=== PATIENT | female | born 1930 | race Caucasian/White ===

== ENCOUNTER → 2017-06-08 15:07 | Outpatient (CLI) | payer MEDICARE, OTHER ==
[2010-05-25 04:16] VITALS: BMI 32.9
[~2017-06-08 15:07] MED LIST: LEVOTHYROXINE50 MCG PO; LISINOPRIL-HCTZ1 T13 PO
[2017-06-09 01:19] VITALS: BMI 33.0
== END | disposition home or self-care (01) ==
LOC: D.US 15:07
DX: M79.604 Pain in right leg (principal); R60.0 Localized edema

== ENCOUNTER 2017-06-08 16:20 | Inpatient (IN) | payer MEDICARE, OTHER ==
[~2017-06-08] VITALS: Ht 157.5 cm; Wt 79.6 kg
[2017-06-08 18:51] LABS: BASOPHILS 0.3 % (0-2); EOSINOPHILS 1.6 % (0-7); HEMATOCRIT 44.6 % (36.0-48.0); HEMOGLOBIN 14.9 g/dL (12-16); IMMATURE GRANULOCYTES 0.4 % (0-5); LYMPHOCYTES 20.1 % (15-50); MCH 33.2 pg (26.0-34.0); MCHC 33.4 g/dL (31.0-37.0); MCV 99.3 fL (80.0-100.0); MEAN PLATELET VOLUME 11.5 fL (7.4-10.4); MONOCYTES 11.6 % (2-11); RBC 4.49 10x6/uL (4.00-5.40); RDW 13.1 % (11.5-14.5); WBC 7.5 10x3/uL (4.8-10.8)
[2017-06-08 19:01] LABS: PLATELET COUNT 149 10x3/uL (130-400)
[2017-06-08 19:08] LABS: APPEARANCE HAZY (CLEAR); BILIRUBIN NEGATIVE (NEGATIVE); COLOR YELLOW (YELLOW); GLUCOSE NEGATIVE (NEGATIVE); KETONE NEGATIVE (NEGATIVE); LEUKOCYTE ESTERASE 2+ (NEGATIVE); NITRITE POSITIVE (NEGATIVE); PROTEIN TRACE mg/dL (NEGATIVE); SPECIFIC GRAVITY 1.015 (1.005-1.020); UROBILINOGEN NORMAL (NORMAL)
[2017-06-08 19:09] LABS: BACTERIA MANY /hpf (NONE SEEN); RED CELLS - URINE 0-5 /hpf (0-5); WHITE CELLS - URINE >50 /hpf (0-5)
[2017-06-08 19:11] LABS: APTT 26.3 SECONDS (22.8-39.4)
[2017-06-08 19:14] LABS: INR 1.01 (0.85-1.17); PROTIME 13.1 SECONDS (11.6-15.0)
[2017-06-08 19:23] LABS: ALBUMIN 3.5 g/dL (3.4-5.0); ALKALINE PHOSPHATASE 62 U/L (46-116); ALT (SGPT) 19 U/L (10-68); CALC OSMOLALITY 279 mosm/kg (275-300); CALCIUM 10.2 mg/dL (8.5-10.1); CARBON DIOXIDE 24.6 mmol/L (21.0-32.0); CHLORIDE - SERUM 101 mmol/L (98-107); GLUCOSE 100 mg/dL (74-106); PROTEIN - SERUM 7.4 g/dL (6.4-8.2); SODIUM 136 mmol/L (136-145); UREA NITROGEN 34 mg/dL (7-18); eGFR NON AFRICAN AMERICAN 56 mL/min (90-120)
[2017-06-08 19:36] LABS: CREATINE KINASE 38 UL (21-215); MAGNESIUM - SERUM 1.9 mg/dL (1.8-2.4); PRO BNP 372 pg/mL (0-450); TROPONIN-I < 0.017 ng/mL (0.000-0.060)
[2017-06-09 01:19] VITALS: Ht 157.5 cm; Wt 79.6 kg
[2017-06-09 01:51] VITALS: BP 148/61
[2017-06-09] MEDS ORDERED: LISINOPRIL-HCTZ1 T13 PO (05:02)
[2017-06-09] MEDS ORDERED: LEVOTHYROXINE50 MCG PO (05:03)
[2017-06-09 07:39] LABS: ALBUMIN 2.8 g/dL (3.4-5.0); ANION GAP 12.6 mmol/L (8-16); BILIRUBIN - TOTAL 0.47 mg/dL (0.2-1.3); CALCIUM 9.3 mg/dL (8.5-10.1); CARBON DIOXIDE 23.2 mmol/L (21.0-32.0); CREATININE - SERUM 0.8 mg/dL (0.6-1.3); POTASSIUM - SERUM 3.8 mmol/L (3.5-5.1); PROTEIN - SERUM 6.6 g/dL (6.4-8.2)
--- NOTE | 2017-06-09 07:43 | NUR ---
AM ROUNDING- RECEIVED REPORT FROM INVESTMENT SALES ASSISTANT NURSE ASAF. PT IS CURRENTLY SITTING UP IN BED WITH EYES OPEN RESTING. ON ROOM AIR. NO MONITOR. IV SEEN TO RIGHT HAND WITH HEPARIN RUNNING AT 10CC/HR (PER DONNA RON). PT IS AWARE THAT SHE IS ON BEDREST WITH BR PRIVILEGES. NO NEED AT CURRENT TIME. WILL CONTINUE TO MONITOR AND CONTINUE WITH PLAN OF CARE.
[2017-06-09 08:34] VITALS: BP 156/82
--- NOTE | 2017-06-09 08:51 | NUR ---
PAGED DR. RICHARDSON TO LET HIM KNOW THAT PTS PTT IS >200. WILL AWAIT CALLBACK AND CONTINUE TO MONITOR.
--- NOTE | 2017-06-09 08:52 | NUR ---
RECEIVED CALLBACK FROM DR. RICHARDSON WITH NO NEW ORDERS RECEIVED. DR. RICHARDSON STATES TO FOLLOW HEPARIN PROTOCOL.
--- NOTE | 2017-06-09 10:30 | NUR ---
RESTARTED HEPARIN DRIP PER PROTOCOL. HEPARIN IS NOW RUNNING AT 7CC/HR PER PROTOCOL.
[2017-06-09 12:24] VITALS: BP 158/82
[2017-06-09 16:33] VITALS: BP 145/78
--- NOTE | 2017-06-09 17:25 | NUR ---
PT IS CURRENTLY SITTING UP IN BED EATING DINNER. DAUGHTER IS AT BEDSIDE. PT DENIES ANY NEED AT CURRENT TIME. WILL CONTINUE TO MONITOR.
--- NOTE | 2017-06-09 17:28 | NUR ---
PTS PTT CAME BACK AT 72.2. PER HEPARIN PROTOCOL NO CHANGE NEEDED.
[2017-06-09 19:00] VITALS: BP 180/99
--- NOTE | 2017-06-09 22:10 | NUR ---
PT'S BP IS 180/99, CALL DOCTOR, AND LISINOPRIL 40 MG PO MED ORDER, AND GIVEN TO PT.
[2017-06-10] VITALS: BP 153/93
[2017-06-10 04:00] VITALS: BP 152/91
--- NOTE | 2017-06-10 07:51 | NUR ---
AM ROUNDING- RECEIVED REPORT FROM JET INSPECTOR NURSE ROBEL. PT IS CURRENTLY SITTING UP IN BED WITH EYES OPEN RESTING. STATES SHE HAS DISCOMFORT WHEN SHE MOVES IN BED. ON 02 AT 2L VIA NC. NO MONITOR. IV SEEN TO RIGHT HAND WITH HEPARIN DRIP RUNNING AT 8CC PER HEPARIN PROTOCOL. NO NEED AT CURRENT TIME. WILL CONTINUE TO MONITOR AND CONTINUE WITH PLAN OF CARE.
[2017-06-10 08:00] VITALS: BP 151/82
--- NOTE | 2017-06-10 08:53 | NUR ---
D/C PTS HEPARIN DRIP ORDERED. SALINE LOCKED IV TO LEFT HAND.
[2017-06-10 12:00] VITALS: BP 148/66
--- NOTE | 2017-06-10 14:01 | NUR ---
Patient Name: MEGHAN GUPTA Encounter No: [id number] : 1930 Primary Insurance: MEDICARE A & B Anticipated DC Date: 06-11-2017 Planned Disposition: Home with Home Health External Planned Provider: [facility] Discharge Planning Comments: * Is the patient Alert and Oriented? Yes 0 * How many steps to enter\exit or inside your home? 2 0 * PCP DR. RICHARDSON 0 * Pharmacy [facility] OR MAIL ORDER 0 * Preadmission Environment Home with Family 0 * ADLs Partial Dependent 0 * Partial ADLs (Assistance needed) Bathing 0 * Equipment Cane Shower Chair Walker Wheelchair 0 * Other Equipment NO MEDICAL EQUIPMENT PROVIDER PREFERENCE 0 * List name and contact numbers for known caregivers / representatives who currently or will assist patient after discharge: LUPILLO GUPTA, SON AND DTR IN LAW, 0 * Community resources currently utilized None 0 * Please name any agencies selected above. NONE 0 * Additional services required to return to the preadmission environment? Yes 0 * Can the patient safely return to the preadmission environment? Yes 0 * Has this patient been hospitalized within the prior 30 days at any hospital? No 0 CM RECEIVED HOME HEALTH ORDER, MET WITH PT IN ROOM TO DISCUSS DISCHARGE PLANNING AND NEEDS. PT REPORTS LIVING AT HOME WITH HER SON AND DA[place]; PT REPORTS BEING PARTIALLY DEPENDENT ON FAMILY FOR BATHING RIGHT NOW. PT HAS CANE, WALKER, SHOWER CHAIR AND WHEELCHAIR WITH NO MEDICAL EQUIPMENT PROVIDER PREFERENCE. PT HAS NO OUTSIDE SERVICES ASSISTING IN THE HOME. CM DISCUSSED AVAILABILITY OF HOME HEALTH, REHAB SERVICES AND MEDICAL EQUIPMENT. PT WOULD LIKE HOME HEALTH, CHOSE [facility], CHOICE LETTER SIGNED; PT REPORTS HER SON OR DAUGHTER IN LAW WILL PICK HER UP FOR DISCHARGE HOME TOMORROW. IMPORTANT MESSAGE FROM MEDICARE PROVIDED AND EXPLAINED. CM CALLED [facility], , SPOKE TO FIDELINA AND PROVIDED REFERRAL INFORMATION. CM FAXED REFERRAL TO [facility] AT [phone]. PT NOTIFIED. FOR DISCHARGE HOME, NOTIFY [facility] AT [phone], FAX DISCHARGE INFORMATION TO [facility] AT [phone]. CM TO FOLLOW AND ASSIST NEEDED. PT'S DISCHARGE ADDRESS IS [address] [place] [address]. Supervisor [employer]: John Modi
[2017-06-10 16:00] VITALS: BP 143/71
--- NOTE | 2017-06-10 16:35 | NUR ---
PT IS CURRENTLY SITTING UP IN BED WITH EYES OPEN RESTING. PT STATES "DOES THIS IV NEED TO COME OUT". I ASSESSED IV SITE AND DID NOT SEE ANY SIGN OF REDNESS OR SWELLING. I INFORMED PT THAT WE KEEP IV CATHETERS IN UNTIL D/C JUST INCASE OF AN EMERGENCY. PT STATES SHE UNDERSTANDS. NO NEED AT CURRENT TIME. WILL CONTINUE TO MONITOR.
--- NOTE | 2017-06-10 19:15 | NUR ---
SHIFT ASSESSMENT COMPLETE. PT SITTING UP IN BED TALKING. SPEECH CLEAR. ALERT AND ORIENTED. PT DENIES ANY COMPLAINT OF PAIN AT THIS TIME. S1S2 AUDIBLE. CAROTID, RADIAL, AND PEDAL PUSLES PALP. BOWEL SOUNDS ACTIVE IN ALL QUADS, ABD NON TENDER TO TOUCH. PT STATES THAT SHE IS ABLE TO GET UP ON HER OWN, BUT I INFORMED HER TO PUSH THE CALL LIGHT SO I COULD ASSIST HER TO THE BATHROOM IF NEEDED. BILAT LEGS ARE RED WITH SOME SWELLING NOTED. SLIPPER SOCKS ON, BED IN LOWEST POSITION, CALL LIGHT IN REACH. PT'S TRANSIT MANAGER IN ROOM VISITING. DENIES ANY FURTHER REQUEST.
[2017-06-10 21:05] VITALS: BP 160/76
[2017-06-11 01:19] VITALS: BP 175/90
--- NOTE | 2017-06-11 02:20 | NUR ---
PT CALL LIGHT ON. ASSISTED PT TO RESTROOM. GAIT STEADY WHEN USING CANE FOR ASSISTANCE. CLEAR YELLOW URINE NOTED. ASKED PT WHAT HER BP USUALLY RUNS AND SHE SAID, "VERY HIGH." I WAS CONCERNED, BECAUSE HER LAST BP WAS HIGHER THAN THE OTHERS COLLECTED. PT STATES THAT SHE FEELS FINE AND THAT SHE HAS BEEN OFF OF HER HOME MEDICATION FOR THREE DAYS NOW AND THAT IT IS NORMAL FOR HER. WILL CONTINUE TO MONITIOR BP. CHANGED PINK PAD AND GOWN. NO INCONTINENCE, BUT THERE WERE STAINS ON GOWN AND PAD. PT BACK IN BED WITH SHEET PULLED UP, NO BLANKET. SHE STATES THAT SHE IS HOT. FOLDED BLANKET AND PUT IT AT THE EDGE OF THE BED. CALL LIGHT IN REACH. BED IN LOWEST POSITION. WILL CONTINUE TO MONITOR.
--- NOTE | 2017-06-11 05:00 | NUR ---
ASSISTED PT TO BATHROOM. CLEAR YELLOW URINE COLLECTED. I&O'S RECORDED. PT CLEANING CANE WITH PURELLE. ALERT AND ORIENTED X3. PT STATES THAT SHE IS GOING BACK TO BED AT THIS TIME. STRAIGHTENED UP LINENS. PT BACK IN BED. CALL LIGHT IN REACH. NO FURTHER NEEDS REQUESTED.
[2017-06-11 06:18] VITALS: BP 175/76
--- NOTE | 2017-06-11 07:12 | NUR ---
PT SITTING UP IN BED STATES SHE WILL DC HOME TODAY. DENIES ANY NEEDS OTHER THAN LIGHT TURNED ON, DONE. WILL CONT TO MONITOR
[2017-06-11 08:09] VITALS: BP 186/93
[2017-06-11] MEDS ORDERED: ELIQUIS5 MG PO ×2 (08:59→09:02)
[2017-06-11] MEDS ORDERED: LIPITOR10 MG PO (09:00)
[2017-06-11] MEDS ORDERED: HCTZ25 MG PO (09:01)
[2017-06-11] MEDS ORDERED: ZESTRIL40 MG PO (09:01)
[2017-06-11] MEDS ORDERED: NORVASC5 MG PO (09:12)
--- NOTE | 2017-06-11 11:03 | NUR ---
Patient Name: MEGHAN GUPTA Encounter No: [id number] : 1930 Primary Insurance: MEDICARE A & B Anticipated DC Date: 06-11-2017 Planned Disposition: Home with Home Health External Planned Provider: [facility] DCP follow-up note: CM RECEIVED DISCHAGE ORDER, MET WITH PT WHO IS IN AGREEMENT FOR DISCHARGE HOME TODAY, FAMILY TO SOLAR CONSULTANT. CM CALLED FIDELINA AT [facility] AT [phone], NOTIFIED OF DISCHARGE, FAXED DISCHARGE INFORMATION TO [facility] AT [phone]. NO FURTHER NEEDS IDENTIFIED. Regional Sales Representative: John Modi
[2017-06-11 12:52] VITALS: BP 151/79
--- NOTE | 2017-06-11 14:24 | NUR ---
WENT OVER DC PAPERWORK WITH PT PT VERBALIZES UNDERSTANDING. DC PIV WITH CATH TIP INTACT. PT HAS SCRIPTS IN POSSESSION. PT DAUGHTER IN LAW HERE TO DRIVE HER HOME. WHEELED OUT TO FRONT ENTRANCE VIA WHEELCHAIR.
== END 2017-06-11 14:26 | disposition home health service (06) | DRG 301 ==
LOC: D.ER 16:20 → D.M2 23:24
PROVIDERS: Nurse Practitioner Family; ADMIT Family Medicine
DX: I82.443 Acute embolism and thrombosis of tibial vein, bilateral (principal); M19.90 Unspecified osteoarthritis, unspecified site; E78.5 Hyperlipidemia, unspecified; E03.9 Hypothyroidism, unspecified; I10 Essential (primary) hypertension; M54.5 Low back pain; I82.411 Acute embolism and thrombosis of right femoral vein; I82.431 Acute embolism and thrombosis of right popliteal vein

== ENCOUNTER → 2017-06-25 09:51 | Outpatient (CLI) | payer MEDICARE, OTHER ==
[2017-06-09 01:19] VITALS: BMI 33.0
--- NOTE | ~2017-06-25 | EC ---
PATIENT:MEGHAN GUPTA DATE OF SERVICE: 06/25/17 SEX: F MEDICAL RECORD: [id number] DATE OF : 34 [facility] AGE OF [facility]: 87 ADMISSION DATE: 06/25/17 REFERRING PHYSICIAN: INTERPRETING PHYSICIAN: DANIEL SAMAYOA MD ECHOCARDIOGRAM REPORT ECHO CHARGES 4 ECHO COMPLETE CLINICAL DIAGNOSIS: IRREGULAR HEART RATE. HX OF HTN ECHOCARDIOGRAPHIC MEASUREMENTS (adult normal given) AC root (d.<3.7cm) 3.8 cm LV Septum d (<1.2 cm> 1.4 cm Valve Excursion 1.3 cm LV Septum (systole) 1.6 cm Left Atria (s.<4.0cm> 3.8 cm LVPW d(<1.2cm) 1.2 cm RV (d.<2.3cm) 4.0 cm LVPW (sytole) 1.4 cm LV diastole(<5.6CM) 4.7 cm MV E-F(>70mm/sec) cm LV systole 3.0 cm LVOT Diameter 2.2 cm MV exc.(>10mm) 1.1 cm Est.ejection fraction (50-75%) % Pericardial Effusion N DOPPLER: LVIT cm/sec A 109 cm/sec E 127 cm/sec LA cm/sec RVSP 42 mmHg LVOT 109 cm/sec AOP1/2T 857 m/s Asc. Ao 187 cm/sec RVOT 82 cm/sec RA cm/sec PA 106 cm/sec AV Gradient Peak 14.0 mmHg AV Mean 7.18 mmHg AV Area 2.3 cm MV Gradient Peak 9.99 mmHg MV Mean 3.11 mmHg MV Area cm COMMENTS: Risk And Insurance Manager: Jonathan DERAS Metal Molder: 1 Dr. Samayoa TAPE# PACS DATE OF SERVICE: 06/25/2017 Echocardiogram FINDINGS: 1. Left ventricular chamber size is within normal limits. Left ventricular systolic function is normal. Overall ejection fraction estimated at 55%. 2. Left atrium is within normal limits at 3.8 cm. Right atrium and right ventricular chamber sizes are mildly dilated. 3. Valvular structures have normal structure and motion. ECHOCARDIOGRAM REPORT [id number] MEGHAN GUPTA 4. Doppler interrogation reveals [id number] aortic insufficiency, mild mitral regurgitation, wzeb-tg-[id number] tricuspid regurgitation, no other valvular insufficiency or stenosis. Pulmonary systolic pressure is mildly elevated estimated at 42 mmHg. 5. No evidence of pericardial effusion or left ventricular thrombus. TRANSINT:[id number] Voice Confirmation ID: [id number] DOCUMENT ID: [id number] DANIEL SAMAYOA MD CC: [id number] DICTATION DATE: 06/26/17 1004 MUSEUM GUIDE: 06/26/171938 [facility] CLI 06/25/17 [facility] [address] [id number]
[~2017-06-25 09:51] MED LIST changes: +ELIQUIS5 MG PO; +HCTZ25 MG PO; +LIPITOR10 MG PO; +NORVASC5 MG PO; +ZESTRIL40 MG PO
[2017-06-25 11:21] LABS: BASOPHILS 0.2 % (0-2); EOSINOPHILS 1.3 % (0-7); HEMOGLOBIN 14.2 g/dL (12-16); IMMATURE GRANULOCYTES 0.3 % (0-5); LYMPHOCYTES 19.1 % (15-50); MCH 32.7 pg (26.0-34.0); MCHC 33.8 g/dL (31.0-37.0); MCV 96.8 fL (80.0-100.0); MEAN PLATELET VOLUME 11.5 fL (7.4-10.4); NEUTROPHILS 70.1 % (40-80); RBC 4.34 10x6/uL (4.00-5.40); RDW 12.7 % (11.5-14.5)
[2017-06-25 11:22] LABS: PLATELET COUNT 194 10x3/uL (130-400)
[2017-06-25 11:38] LABS: ALBUMIN 3.5 g/dL (3.4-5.0); ANION GAP 12.5 mmol/L (8-16); BILIRUBIN - TOTAL 0.45 mg/dL (0.2-1.3); CALCIUM 9.6 mg/dL (8.5-10.1); CARBON DIOXIDE 25.8 mmol/L (21.0-32.0); CHOL - HDL RATIO 2.1 ratio (2.3-4.1); CREATININE - SERUM 0.8 mg/dL (0.6-1.3); LDL-HDL RATIO 0.9 ratio (1.5-3.5); POTASSIUM - SERUM 4.3 mmol/L (3.5-5.1); PROTEIN - SERUM 7.6 g/dL (6.4-8.2); THYROID STIMULATING HORMONE 2.02 uIU/mL (0.36-3.74); URIC ACID 6.3 mg/dL (2.6-7.2)
== END | disposition home or self-care (01) ==
LOC: D.CN 09:00 → D.ECHO 10:35
PROVIDERS: Family Medicine
DX: I49.9 Cardiac arrhythmia, unspecified (principal); E78.4 Other hyperlipidemia; I10 Essential (primary) hypertension; E03.9 Hypothyroidism, unspecified; Z00.00 Encounter for general adult medical examination without abnormal findings

== ENCOUNTER → 2017-07-22 14:59 | Outpatient (CLI) | payer MEDICARE, OTHER ==
[2017-06-09 01:19] VITALS: BMI 33.0
[2017-07-22 15:39] LABS: INR 1.06 (0.85-1.17); PROTIME 13.6 SECONDS (11.6-15.0)
== END | disposition home or self-care (01) ==
LOC: D.LAB 08:00
PROVIDERS: Family Medicine
DX: I82.409 Acute embolism and thrombosis of unspecified deep veins of unspecified lower extremity (principal)

== ENCOUNTER → 2018-10-13 09:43 | Outpatient (CLI) | payer MEDICARE, OTHER ==
[2017-06-09 01:19] VITALS: BMI 33.0
[2018-10-13 10:12] LABS: BASOPHILS 0.3 % (0-2); EOSINOPHILS 1.5 % (0-7); HEMATOCRIT 43.2 % (36.0-48.0); HEMOGLOBIN 14.7 g/dL (12-16); IMMATURE GRANULOCYTES 0.1 % (0-5); MCH 33.9 pg (26.0-34.0); MCV 99.8 fL (80.0-100.0); MEAN PLATELET VOLUME 10.6 fL (7.4-10.4); MONOCYTES 8.8 % (2-11); NEUTROPHILS 75.3 % (40-80); PLATELET COUNT 204 10x3/uL (130-400); RBC 4.33 10x6/uL (4.00-5.40); RDW 12.5 % (11.5-14.5); WBC 7.3 10x3/uL (4.8-10.8)
[2018-10-13 10:54] LABS: ALBUMIN 3.6 g/dL (3.4-5.0); ANION GAP 12.5 mmol/L (8-16); BILIRUBIN - TOTAL 0.44 mg/dL (0.2-1.3); CALCIUM 10.3 mg/dL (8.5-10.1); CARBON DIOXIDE 26.6 mmol/L (21.0-32.0); CHOL - HDL RATIO 2.1 ratio (2.3-4.1); CREATININE - SERUM 0.9 mg/dL (0.6-1.3); LDL-HDL RATIO 0.9 ratio (1.5-3.5); POTASSIUM - SERUM 4.1 mmol/L (3.5-5.1); THYROID STIMULATING HORMONE 3.78 uIU/mL (0.36-3.74)
== END | disposition home or self-care (01) ==
LOC: D.LAB 09:43
PROVIDERS: Family Medicine
DX: I10 Essential (primary) hypertension (principal); I82.409 Acute embolism and thrombosis of unspecified deep veins of unspecified lower extremity; M19.90 Unspecified osteoarthritis, unspecified site; E03.9 Hypothyroidism, unspecified

== ENCOUNTER → 2019-03-30 16:41 | Outpatient (CLI) | payer MEDICARE, OTHER ==
[2017-06-09 01:19] VITALS: BMI 33.0
[2019-03-30 18:09] LABS: ANION GAP 16.2 mmol/L (8-16); CALCIUM 9.5 mg/dL (8.5-10.1); CARBON DIOXIDE 21.8 mmol/L (21.0-32.0); CREATININE - SERUM 1.1 mg/dL (0.6-1.3); THYROID STIMULATING HORMONE 1.27 uIU/mL (0.36-3.74)
== END | disposition home or self-care (01) ==
LOC: D.LAB 16:41
PROVIDERS: ATTEND Family Medicine
DX: E03.9 Hypothyroidism, unspecified (principal); I10 Essential (primary) hypertension; R60.9 Edema, unspecified

== ENCOUNTER 2019-04-19 11:52 | Inpatient (IN) | payer MEDICARE, OTHER ==
[~2019-04-19] VITALS: Ht 157.5 cm; Wt 81.6 kg
--- NOTE | 2019-04-19 12:21 | NUR ---
PT ARRIVED VIA [facility]. PT C/O BEING CONFUSED SINCE ONSET OF TAKING MUSCLE RELAXERS AND BECOMING WORSE OVER PAST TWO DAYS. CANNOT ARTICULATE WORDS CORRECTLY ON OCCASION. PT HAS BEEN MIXING UP HER MEDICATIONS AND THAT IS UNUSUAL FOR HER. FAMILY AT BEDSIDE STATES SHE IS MOSTLY INDEPENDENT. FOLLOWS ALL COMMANDS APPROPRIATELY. REPORTS PAIN TO L SHOULDER THAT STARTED LAST WEEK AFTER SLEEPING ON IT WRONG.
[2019-04-19 13:02] LABS: ALBUMIN 3.8 g/dL (3.4-5.0); ALKALINE PHOSPHATASE 75 U/L (46-116); ALT (SGPT) 27 U/L (10-68); BILIRUBIN - TOTAL 0.59 mg/dL (0.2-1.3); CALC OSMOLALITY 267 mosm/kg (275-300); CALCIUM 10.1 mg/dL (8.5-10.1); CARBON DIOXIDE 24.5 mmol/L (21.0-32.0); CHLORIDE - SERUM 97 mmol/L (98-107); CREATININE - SERUM 0.9 mg/dL (0.6-1.3); GLUCOSE 99 mg/dL (74-106); POTASSIUM - SERUM 4.3 mmol/L (3.5-5.1); PROTEIN - SERUM 7.9 g/dL (6.4-8.2); SODIUM 131 mmol/L (136-145); UREA NITROGEN 27 mg/dL (7-18); eGFR NON AFRICAN AMERICAN 63 mL/min (90-120)
[2019-04-19 13:15] LABS: APTT 29.7 SECONDS (22.8-39.4); INR 1.16 (0.85-1.17); PROTIME 14.3 SECONDS (11.6-15.0)
[2019-04-19 13:16] LABS: HEMATOCRIT 44.3 % (36.0-48.0); HEMOGLOBIN 15.3 g/dL (12-16); LYMPHOCYTES 21.2 % (15-50); MCH 33.3 pg (26.0-34.0); MCHC 34.5 g/dL (31.0-37.0); MCV 96.3 fL (80.0-100.0); MEAN PLATELET VOLUME 10.8 fL (7.4-10.4); NEUTROPHILS 73.6 % (40-80); RDW 13.2 % (11.5-14.5); WBC 7.1 10x3/uL (4.8-10.8)
[2019-04-19 13:17] LABS: CKMB 6.3 U/L (0.0-3.6); CREATINE KINASE 291 UL (21-215); THYROID STIMULATING HORMONE 1.53 uIU/mL (0.36-3.74)
[2019-04-19 13:19] LABS: TROPONIN-I < 0.017 ng/mL (0.000-0.060)
[2019-04-19 13:27] LABS: PLATELET COUNT 141 10x3/uL (130-400)
[2019-04-19 13:40] LABS: UDS - AMPHET NEGATIVE QUAL (NEGATIVE); UDS - BARB NEGATIVE QUAL (NEGATIVE); UDS - BENZO NEGATIVE QUAL (NEGATIVE); UDS - COCAINE NEGATIVE QUAL (NEGATIVE); UDS - OPIATE NEGATIVE QUAL (NEGATIVE); UDS - PCP NEGATIVE QUAL (NEGATIVE); UDS - THC NEGATIVE QUAL (NEGATIVE)
[2019-04-19 14:40] LABS: APPEARANCE SL CLDY (CLEAR); BACTERIA MANY /hpf (NONE SEEN); BILIRUBIN NEGATIVE (NEGATIVE); COLOR YELLOW (YELLOW); EPITHELIAL CELLS 0-5 /hpf (0-5); GLUCOSE NEGATIVE (NEGATIVE); KETONE SMALL mg/dL (NEGATIVE); NITRITE POSITIVE (NEGATIVE); PROTEIN 1+ mg/dL (NEGATIVE); SPECIFIC GRAVITY 1.015 (1.005-1.020); UROBILINOGEN NORMAL (NORMAL); WHITE CELLS - URINE 25-50 /hpf (0-5)
[2019-04-19 14:41] LABS: MUCUS <1+ /lpf (NONE SEEN)
[2019-04-19 18:41] VITALS: BP 121/80; BMI 33.0
[2019-04-19 20:00] VITALS: BP 147/72
--- NOTE | 2019-04-19 20:45 | NUR ---
AWAKE,ALERT WITH MILD CONFUSION NOTED. RESP EVEN AND UNLABORED. NO DISTRESS NOTED. IV INFUSING TO LEFT HAND WITHOUT REDNESS OR EDEMA NOTED. CL IN REACH.FAMILY AT BEDSIDE.
[2019-04-20] VITALS: BP 175/84
[2019-04-20 04:30] VITALS: BP 143/80
--- NOTE | 2019-04-20 04:55 | NUR ---
I have reviewed this patient and I concur with the Shift Assessment completed by the Licensed Practical Nurse today this shift.
[2019-04-20 07:58] LABS: BASOPHILS 0.2 % (0-2); EOSINOPHILS 1.3 % (0-7); HEMATOCRIT 45.1 % (36.0-48.0); HEMOGLOBIN 15.3 g/dL (12-16); IMMATURE GRANULOCYTES 0.4 % (0-5); LYMPHOCYTES 14.1 % (15-50); MCH 32.8 pg (26.0-34.0); MCHC 33.9 g/dL (31.0-37.0); MCV 96.6 fL (80.0-100.0); MEAN PLATELET VOLUME 10.4 fL (7.4-10.4); MONOCYTES 8.1 % (2-11); NEUTROPHILS 75.9 % (40-80); RBC 4.67 10x6/uL (4.00-5.40); RDW 12.5 % (11.5-14.5)
[2019-04-20 08:00] LABS: PLATELET COUNT 191 10x3/uL (130-400); WBC 9.2 10x3/uL (4.8-10.8)
[2019-04-20 08:17] LABS: ALBUMIN 3.3 g/dL (3.4-5.0); ANION GAP 12.7 mmol/L (8-16); BILIRUBIN - TOTAL 0.61 mg/dL (0.2-1.3); CALCIUM 9.4 mg/dL (8.5-10.1); CARBON DIOXIDE 24.4 mmol/L (21.0-32.0); CREATININE - SERUM 0.8 mg/dL (0.6-1.3); POTASSIUM - SERUM 4.1 mmol/L (3.5-5.1); PROTEIN - SERUM 6.9 g/dL (6.4-8.2)
[2019-04-20 09:22] VITALS: BP 163/74
[2019-04-20 12:49] VITALS: BP 148/91
[2019-04-20 13:10] VITALS: Ht 157.5 cm; Wt 81.6 kg
[2019-04-20 14:56] VITALS: BP 138/77
--- NOTE | 2019-04-20 20:00 | NUR ---
ASSESSMENT PER FLOWSHEET. IV PATENT LEFT HAND OF NS AT 100CC'S/HR SITE CLEAR FAMILY MEMBERS AT BEDSIDE. BED ALARM ON. SR UP X2 CALL LIGHT WITHIN REACH. TELM. SHOWS SR WITH HR 88. RED AREAS TO MARY AREA,ABD. FOLDS AND THIGH. NYSTATIN APPLIED. SCD'S ON.
[2019-04-20 20:58] VITALS: BP 128/75
--- NOTE | 2019-04-20 22:00 | NUR ---
INC URINE COMPLETE BED BATH WITH LINENS CHANGED.
--- NOTE | 2019-04-21 00:26 | NUR ---
EYES CLOSED RESPIRATIONS WITH EASE AND UNLABORED.
[2019-04-21 03:57] LABS: BASOPHILS 0.2 % (0-2); EOSINOPHILS 0.8 % (0-7); HEMATOCRIT 38.1 % (36.0-48.0); HEMOGLOBIN 13.2 g/dL (12-16); IMMATURE GRANULOCYTES 0.5 % (0-5); LYMPHOCYTES 13.6 % (15-50); MCH 32.9 pg (26.0-34.0); MCHC 34.6 g/dL (31.0-37.0); MEAN PLATELET VOLUME 9.9 fL (7.4-10.4); MONOCYTES 12.5 % (2-11); NEUTROPHILS 72.4 % (40-80); PLATELET COUNT 179 10x3/uL (130-400); RBC 4.01 10x6/uL (4.00-5.40); RDW 12.3 % (11.5-14.5); WBC 8.4 10x3/uL (4.8-10.8)
[2019-04-21 04:04] LABS: ANION GAP 12.2 mmol/L (8-16); CALCIUM 8.5 mg/dL (8.5-10.1); CARBON DIOXIDE 23.6 mmol/L (21.0-32.0); CREATININE - SERUM 0.8 mg/dL (0.6-1.3); POTASSIUM - SERUM 3.8 mmol/L (3.5-5.1)
[2019-04-21 05:25] VITALS: BP 134/80
[2019-04-21 09:00] VITALS: BP 154/82
--- NOTE | 2019-04-21 11:48 | NUR ---
REHAB PRESCREENING Rehab referral received and chart reviewed. Rehab will continue to follow this patient for completed medical workup in order to accurately assess admission criteria. Thank you for this referral! Dianne James, BASTING CLEANER Rehab PD
[2019-04-21 12:36] VITALS: BP 149/88
--- NOTE | 2019-04-21 14:47 | NUR ---
I have reviewed this patient and I concur with the Shift Assessment completed by the Licensed Practical Nurse today this shift.
[2019-04-21 16:43] VITALS: BP 147/87
--- NOTE | 2019-04-21 20:52 | NUR ---
AWAKE,ALERT.NO COMPLAITNS VOICED. RESP EVEN AND UNLABORED. NO DISTESS NOTED. IV TO TO LEFT HAND WITHOUT REDNESS OR EDEMA NOTED. CL IN REACH.
[2019-04-22 00:07] VITALS: BP 154/80
--- NOTE | 2019-04-22 01:57 | NUR ---
I have reviewed this patient and I concur with the Shift Assessment completed by the Licensed Practical Nurse today this shift.
[2019-04-22 05:07] VITALS: BP 163/92
--- NOTE | 2019-04-22 07:56 | NUR ---
PT RESTING IN BED. NO SIGNS OF DISTRESS. IV TO LEFT HAND PATENT NO REDNESS OR TENDERNESS. ON TELEMETRY 72 NORMAL SINUS. DENIES ANY FUTHER NEED AT THIS TIME. CALL LIGHT IN REACH. BED LOW POSITION. NO FAMILY AT BEDSIDE AT THIS TIME.
[2019-04-22 09:00] VITALS: BP 186/115
[2019-04-22 13:23] VITALS: BP 165/95
--- NOTE | 2019-04-22 13:27 | NUR ---
NUTRITION F/U PT TOLERATING REG DIET WITH 100% INTAKE RECENT MEALS. WILL CONTINUE TO HONOR FOOD PREFERENCES, MONITOR PO INTAKE. RD FOLLOWING
[2019-04-22 17:22] VITALS: BP 150/92
--- NOTE | 2019-04-22 19:00 | NUR ---
REPORT RECEIVED AND CARE OF PT ASSUMED. PT LYING IN SEMI CHRISTIE'S POSITION WATCHING TV. IV IN LEFT HAND SALINE LOCKED. TELEMETRY IN PLACE AND READING SR AT 70 BPMS AT THIS ASSESSMENT. BED ALARM IN USE. WILL MONITOR FOR NEEDS.
[2019-04-22 20:06] VITALS: BP 132/65
--- NOTE | 2019-04-22 20:30 | NUR ---
ASSISTED ANGLE ROLL OPERATOR IN CHANGING BRIEF. POSITIONED FOR COMFORT.
--- NOTE | 2019-04-22 20:37 | NUR ---
HS MEDICATIONS GIVEN. BP 132/65 AT THIS ASSESSMENT.
[2019-04-23] VITALS (7 sets, daily range): BP systolic 136–208; BP diastolic 70–99
--- NOTE | 2019-04-23 12:04 | MORECARE ---
CASE MANAGEMENT DISCHARGE SUMMARY PATIENT: MEGHAN GUPTA UNIT: [id number] ADM DATE: 04/19/19 AGE: 89 : 32 SEX: F ROOM/BED: D.2220 AUTHOR: STEVEN SHAIKH PHYSICIAN: REFERRING PHYSICIAN: ATILIO RICHARDSON MD DATE OF SERVICE: 04/23/19 Discharge Plan Patient Name: MEGHAN GUPTA Facility: [facility]:[place] : 1930 Planned Disposition: Inpatient Rehab Facility Anticipated Discharge Date: Discharge Date: Expected LOS: Initial Reviewer: [email or web address] Initial Review Date: 04/19/2019 Generated: 04/23/19 1:03 pm Patient Name: MEGHAN GUPTA Page [id number] at 1204 All edits/amendments must be made on the electronic document DICTATION DATE: 04/23/191202 EEG TECHNICIAN: FLOR 04/23/19 1203 RPT#: [id number] DC DATE: STATUS: ADM IN [facility] [address] [place] [address] END OF REPORT
--- NOTE | 2019-04-23 12:11 | MORECARE ---
CASE MANAGEMENT DISCHARGE SUMMARY PATIENT: MEGHAN GUPTA UNIT: [id number] ADM DATE: 04/19/19 AGE: 89 : 32 SEX: F ROOM/BED: D.2220 AUTHOR: STEVEN SHAIKH PHYSICIAN: REFERRING PHYSICIAN: ATILIO RICHARDSON MD DATE OF SERVICE: 04/23/19 Discharge Plan Patient Name: MEGHAN GUPTA Facility: [facility]:[place] : 1930 Planned Disposition: Inpatient Rehab Facility Anticipated Discharge Date: Discharge Date: Expected LOS: Initial Reviewer: [email or web address] Initial Review Date: 04/19/2019 Generated: 04/23/19 1:11 pm Comments DCP- Discharge Planning Updated by [email or web address]: Farzaneh Peck on 04/23/19 11:[address] Patient has an order for acute rehab prescreen. Physical therapy evaluation has been done. OT evaluation has been ordered. Rehab is following the patient to assess for admission. Patient must have need for 2 therapies. Last DP export: 04/23/19 11:04 a Patient Name: MEGHAN GUPTA Page [phone] at 1211 All edits/amendments must be made on the electronic document DICTATION DATE: 04/23/19 1211 TRANSLATIONAL SPECIALIST: FLOR 04/23/19 1211 RPT#: [id number] DC DATE: STATUS: ADM IN [facility] [address] [place] [address] END OF REPORT
--- NOTE | 2019-04-23 19:00 | NUR ---
REPORT RECEIVED AND CARE OF PT ASSUMED. PT LYING IN HIGH CHRISTIE'S POSITION VISITING WITH FAMILY MEMBER. IV IN LEFT HAND SALINE LOCKED. TELEMETRY IN USE AND READING SR AT THIS ASSESSMENT. SCD'S IN PLACE ON BLE. WILL MONITOR FOR NEEDS.
--- NOTE | 2019-04-23 20:22 | NUR ---
HS MEDICATIONS GIVEN. WILL CONTINUE TO MONITOR FOR NEEDS.
[2019-04-24 01:08] VITALS: BP 133/97
[2019-04-24 05:29] VITALS: BP 173/101
--- NOTE | 2019-04-24 05:51 | NUR ---
PT BLOOD PRESSURE 173/101 THIS CHECK. GAVE NORVASC 5 MG PO EARLY, ALONG WITH PROTONIX AND LINZESS. WILL CONTINUE TO MONITOR CLOSELY.
[2019-04-24 06:31] LABS: BASOPHILS 0.2 % (0-2); EOSINOPHILS 5.4 % (0-7); HEMATOCRIT 38.5 % (36.0-48.0); HEMOGLOBIN 13.1 g/dL (12-16); IMMATURE GRANULOCYTES 0.2 % (0-5); LYMPHOCYTES 18.6 % (15-50); MCH 32.5 pg (26.0-34.0); MCV 95.5 fL (80.0-100.0); MEAN PLATELET VOLUME 10.3 fL (7.4-10.4); MONOCYTES 12.1 % (2-11); NEUTROPHILS 63.5 % (40-80); PLATELET COUNT 190 10x3/uL (130-400); RBC 4.03 10x6/uL (4.00-5.40); RDW 12.6 % (11.5-14.5); WBC 4.8 10x3/uL (4.8-10.8)
--- NOTE | 2019-04-24 06:36 | NUR ---
PT RESTED WELL OVERNIGHT. CONTINUE PLAN OF CARE.
[2019-04-24 06:50] LABS: ANION GAP 10.5 mmol/L (8-16); CALCIUM 9.1 mg/dL (8.5-10.1); CARBON DIOXIDE 26.5 mmol/L (21.0-32.0); CREATININE - SERUM 0.9 mg/dL (0.6-1.3)
[2019-04-24 09:05] VITALS: BP 180/90
[2019-04-24 13:10] VITALS: BP 168/106
--- NOTE | 2019-04-24 16:01 | NUR ---
HAVE CALLED PHARMACY TWICE TODAY ABOUT PT'S PYRIDUM AND HAVE NOT GOTTEN IT YET.
[2019-04-24 16:34] VITALS: BP 159/93
--- NOTE | 2019-04-24 19:00 | NUR ---
REPORT RECEIVED AND CARE OF PT ASSUMED. PT LYING IN LOW CHRISTIE'S POSITION VISITING WITH FAMILY MEMBER.IV IN LEFT HAND SALINE LOCKED. SCD'S IN PLACE ON BLE. WILL MONITOR FOR NEEDS.
--- NOTE | 2019-04-24 19:02 | MORECARE ---
CASE MANAGEMENT DISCHARGE SUMMARY PATIENT: MEGHAN GUPTA UNIT: [id number] ADM DATE: 04/19/19 AGE: 89 : 32 SEX: F ROOM/BED: D.2220 AUTHOR: HAWA,DOC PHYSICIAN: REFERRING PHYSICIAN: ATILIO RICHARDSON MD DATE OF SERVICE: 04/24/19 Discharge Plan Patient Name: MEGHAN GUPTA Facility: [facility]:[place] : 1930 Planned Disposition: Inpatient Rehab Facility Anticipated Discharge Date: Discharge Date: Expected LOS: Initial Reviewer: [email or web address] Initial Review Date: 04/19/2019 Generated: 04/24/19 8:02 pm Comments DCP- Discharge Planning Updated by [email or web address]: Farzaneh Peck on 04/24/19 5:[address] CM MET WITH THE PATIENT TO DISCUSS DISCHARGE PLANNING. SHE STATED SHE AND DR RICHARDSON HAD DISCUSSED REHAB FOR OT AND PT AT [facility]. CM EXPLINED MY ROLE AND REC HER PERMISSION TO PROCEED W/ ASSESSMENT. I EXPLAINED ACUTE REHAB, SKILLED REHAB ABD HOME HEALTH. SHE WOULD LIKE REHAB AT [facility]. IF NOT ACCEPTED SHE WOULD LIKE SKILLED REHAB AT [facility] AND REHAB AT [place]. SHE LIVES IN [facility] WITH HER SON AND HIS FAMILY. WHILE WE WERE TALKING, HER SON, LUPILLO, CAME TO VISIT. THE PATIENT GAVE PERMISSION TO SPEAK WITH HER SON ABOUT D/C PLANS. PCP- DR RICHARDSON PHARMACY- [facility]- CANE, WHEEL CHAIR, WALKER, SHOWER CHAIR, COMMODE THERE ARE 2 STEPS WITHOUT RAIL TO ENTER HOME FROM [place]. HER SON ASSIST HER. HE WILL ALSO PROVIDE TRANSPORTATION TO HOME. CM TO FOLLOW TO ASSIST W/ DCP. DCP- Discharge Planning Updated by [id number]: Farzaneh Peck on 04/23/19 11:[address] Patient has an order for acute rehab prescreen. Physical therapy evaluation has been done. OT evaluation has been ordered. Rehab is following the patient to assess for admission. Patient must have need for 2 therapies. Last DP export: 04/23/19 11:11 a Patient Name: MEGHAN GUPTA Page [id number] at 1902 All edits/amendments must be made on the electronic document DICTATION DATE: 04/24/191900 DIFFERENTIAL SPECIALIST: FLOR 04/24/191900 RPT#: [id number] DC DATE: STATUS: ADM IN [facility] [address] [place] [address] END OF REPORT
--- NOTE | 2019-04-24 19:55 | NUR ---
PT ASSISTED UP TO BEDSIDE COMMODE AND BED PADS AND BRIEF CHANGED.
--- NOTE | 2019-04-24 20:20 | NUR ---
HS MEDICATIONS GIVEN TO INCLUDE TYLENOL PER REQUEST FOR HEADACHE. WILL CONTINUE TO MONITOR FOR NEEDS.
[2019-04-24 20:32] VITALS: BP 140/77
[2019-04-25 01:25] VITALS: BP 189/93
[2019-04-25 06:02] VITALS: BP 185/99
[2019-04-25 09:02] VITALS: BP 170/84
[2019-04-25 13:57] VITALS: BP 177/113
[2019-04-25 17:52] VITALS: BP 189/95
--- NOTE | 2019-04-25 18:55 | NUR ---
PATIENT IN BED WITH IV INTACT. BSCDS ON AND WORKING. NO COMPLAINTS OR DISTRESS AT THIS TIME. CALL LIGHT WITHIN REACH.
--- NOTE | 2019-04-25 20:00 | NUR ---
ASSESSMENT PER FLOWSHEET. IV SALINE LOCKED TO LEFT HAD. SR UP X2 CALL LIGHT WITHIN REACH. EVETTE MAT ON. REMAINS ALERT/ORIENTED. SCD'S ON.
[2019-04-25 20:41] VITALS: BP 196/109
--- NOTE | 2019-04-25 21:00 | NUR ---
MEDS GIVEN PER MAR.
--- NOTE | 2019-04-25 22:00 | NUR ---
UP TO BSC VOIDS AND HAD SMALL BROWN STOOL. CLEANED AND DRIED. ASSISTED BACK TO BED. SR UP X2 CALL LIGHT WITHIN REACH.
--- NOTE | 2019-04-26 | NUR ---
EYES CLOSED RESPIRATIONS WITH EASE AND UNLABORED.
[2019-04-26 00:38] VITALS: BP 162/72
--- NOTE | 2019-04-26 03:04 | NUR ---
UP TO BSC VOIDED ASSISTED BACK TO BED. SR UP X2 CALL LIGHT WITHIN REACH.
[2019-04-26 05:22] VITALS: BP 166/91
--- NOTE | 2019-04-26 08:00 | NUR ---
PATIENT IN BED WITH IV INTACT. NO COMPLAINTS OR SIGNS OF DISTRESS. FAMILY AT BEDSIDE. CALL LIGHT WITHIN REACH.
[2019-04-26 09:28] VITALS: BP 159/94
[2019-04-26] MEDS ORDERED: LEVOFLOXACIN500 MG PO ×2 (12:49→13:36)
[2019-04-26] MEDS ORDERED: MOBIC7.5 MG PO (12:50)
[2019-04-26] MEDS ORDERED: HYDRALAZINE HCL25 MG PO (12:50)
[2019-04-26] MEDS ORDERED: LIDODERM 5 %1 PATCH TRANSDERM (12:51)
[2019-04-26] MEDS ORDERED: FLORAJEN3 CAPS460 MG PO (12:51)
[2019-04-26] MEDS ORDERED: NYSTATIN1 PWD TOPICAL (12:52)
[2019-04-26] MEDS ORDERED: VITAMIN D5000 UNIT PO (12:52)
[2019-04-26] MEDS ORDERED: VITAMIN B-121000 MCG PO (12:52)
[2019-04-26 13:43] VITALS: BP 178/104
--- NOTE | 2019-04-26 14:29 | MORECARE ---
CASE MANAGEMENT DISCHARGE SUMMARY PATIENT: MEGHAN GUPTA UNIT: [id number] ADM DATE: 04/19/19 AGE: 89 : 32 SEX: F ROOM/BED: D.2220 AUTHOR: HAWA,DOC PHYSICIAN: REFERRING PHYSICIAN: ATILIO RICHARDSON MD DATE OF SERVICE: 04/26/19 Discharge Plan Patient Name: MEGHAN GUPTA Facility: [facility]:[place] : 1930 Planned Disposition: Inpatient Rehab Facility Anticipated Discharge Date: Discharge Date: Expected LOS: Initial Reviewer: [email or web address] Initial Review Date: 04/19/2019 Generated: 04/26/19 3:28 pm Comments DCP- Discharge Planning Updated by [id number]: Babrara Watkins on 04/26/19 1:[address] PATIENT WILL BE DISCHARGING TO INPATIENT REHAB TODAY, IMM SERVED AND EXPLAINED DAUGHTER AT BEDSIDE. CM WILL CONTINUE TO FOLLOW AND ASSIST WITH DC PLANNING DCP- Discharge Planning Updated by [id number]: Farzaneh Peck on 04/24/19 5:[address] CM MET WITH THE PATIENT TO DISCUSS DISCHARGE PLANNING. SHE STATED SHE AND DR RICHARDSON HAD DISCUSSED REHAB FOR OT AND PT AT [facility]. CM EXPLINED MY ROLE AND REC HER PERMISSION TO PROCEED W/ ASSESSMENT. I EXPLAINED ACUTE REHAB, SKILLED REHAB ABD HOME HEALTH. SHE WOULD LIKE REHAB AT [facility]. IF NOT ACCEPTED SHE WOULD LIKE SKILLED REHAB AT [facility] AND REHAB AT [place]. SHE LIVES IN [facility] WITH HER SON AND HIS FAMILY. WHILE WE WERE TALKING, HER SON, LUPILLO, CAME TO VISIT. THE PATIENT GAVE PERMISSION TO SPEAK WITH HER SON ABOUT D/C PLANS. PCP- DR RICHARDSON PHARMACY- [facility] AND [facility]- CANE, WHEEL CHAIR, WALKER, SHOWER CHAIR, COMMODE THERE ARE 2 STEPS WITHOUT RAIL TO ENTER HOME FROM [place]. HER SON ASSIST HER. HE WILL ALSO PROVIDE TRANSPORTATION TO HOME. CM TO FOLLOW TO ASSIST W/ DCP. DCP- Discharge Planning Updated by [id number]: Farzaneh Peck on 04/23/19 11:[address] Patient has an order for acute rehab prescreen. Physical therapy evaluation has been done. OT evaluation has been ordered. Rehab is following the patient to assess for admission. Patient must have need for 2 therapies. Coverage Notice Reviewer: [email or web address] Varun Watkins Notice Issued Date-Time: 04/26/2019 14:00 Notice Type: IM Discharge Notice Notice Delivered To: Patient Relationship to Patient: Driller And Reamer Name: Delivery Method: HAND - Hand Delivered Fide Days: Prior Verbal Notification: Recipient Understood Notice: Yes Recipient Signature: Yes Med Rec Note Co-signed by Attending: Coverage Notice Comment: Last DP export: 04/24/19 6:02 p Patient Name: MEGHAN GUPTA Page [phone] at 1429 All edits/amendments must be made on the electronic document DICTATION DATE: 04/26/191427 KINESIOLOGY INTERNSHIP: FLOR 04/26/191427 RPT#: [id number] DC DATE: STATUS: ADM IN [facility] [address] [place] [address] END OF REPORT
--- NOTE | 2019-04-26 16:16 | MORECARE ---
CASE MANAGEMENT DISCHARGE SUMMARY PATIENT: MEGHAN GUPTA UNIT: [id number] ADM DATE: 04/19/19 AGE: 89 : 32 SEX: F ROOM/BED: D.2220 AUTHOR: HAWA,DOC PHYSICIAN: REFERRING PHYSICIAN: ATILIO RICHARDSON MD DATE OF SERVICE: 04/26/19 Discharge Plan Patient Name: MEGHAN GUPTA Facility: [facility]:[place] : 1930 Planned Disposition: Inpatient Rehab Facility Anticipated Discharge Date: Discharge Date: Expected LOS: Initial Reviewer: [email or web address] Initial Review Date: 04/19/2019 Generated: 04/26/19 5:16 pm Comments DCP- Discharge Planning Updated by [email or web address]: Barbara Watkins on 04/26/19 1:[address] PATIENT WILL BE DISCHARGING TO INPATIENT REHAB TODAY, IMM SERVED AND EXPLAINED DAUGHTER AT BEDSIDE. CM WILL CONTINUE TO FOLLOW AND ASSIST WITH DC PLANNING DCP- Discharge Planning Updated by [email or web address]: Farzaneh Peck on 04/24/19 5:[address] CM MET WITH THE PATIENT TO DISCUSS DISCHARGE PLANNING. SHE STATED SHE AND DR RICHARDSON HAD DISCUSSED REHAB FOR OT AND PT AT [facility]. CM EXPLINED MY ROLE AND REC HER PERMISSION TO PROCEED W/ ASSESSMENT. I EXPLAINED ACUTE REHAB, SKILLED REHAB ABD HOME HEALTH. SHE WOULD LIKE REHAB AT [facility]. IF NOT ACCEPTED SHE WOULD LIKE SKILLED REHAB AT [facility] AND REHAB AT [place]. SHE LIVES IN [place] WITH HER SON AND HIS FAMILY. WHILE WE WERE TALKING, HER SON, LUPILLO, CAME TO VISIT. THE PATIENT GAVE PERMISSION TO SPEAK WITH HER SON ABOUT D/C PLANS. PCP- DR RICHARDSON [facility]- [facility] DME- CANE, WHEEL CHAIR, WALKER, SHOWER CHAIR, COMMODE THERE ARE 2 STEPS WITHOUT RAIL TO ENTER HOME FROM [facility]. HER SON ASSIST HER. HE WILL ALSO PROVIDE TRANSPORTATION TO HOME. CM TO FOLLOW TO ASSIST W/ DCP. DCP- Discharge Planning Updated by [id number]: Farzaneh Peck on 04/23/19 11:[address] Patient has an order for acute rehab prescreen. Physical therapy evaluation has been done. OT evaluation has been ordered. Rehab is following the patient to assess for admission. Patient must have need for 2 therapies. Coverage Notice Reviewer: [email or web address] Varun Watkins Notice Issued Date-Time: 04/26/2019 14:00 Notice Type: IM Discharge Notice Notice Delivered To: Patient Relationship to Patient: Through Freight Engineer Name: Delivery Method: HAND - Hand Delivered Fide Days: Prior Verbal Notification: Recipient Understood Notice: Yes Recipient Signature: Yes Med Rec Note Co-signed by Attending: Coverage Notice Comment: Last DP export: 04/26/19 1:28 p Patient Name: MEGHAN GUPTA Page [id number] at 1616 All edits/amendments must be made on the electronic document DICTATION DATE: 04/26/191614 ESTHETICIAN/SKIN THERAPIST: FLOR 04/26/19 161 RPT#: [id number] DC DATE: STATUS: ADM IN [facility] [address] [place] [address] END OF REPORT
--- NOTE | 2019-04-26 17:00 | NUR ---
PATIENT RECIEVED DC INSTRUCTIONS AT THIS TIME. VERBALIZED UNDERSTANDING. NO QUESTIONS AT THIS TIME. FAMILY AT SIDE. REPORT CALLED TO [facility] IN REHAB.
--- NOTE | 2019-04-26 17:02 | NUR ---
PATIENT TAKEN TO REHAB VIA WC WITH PERSONAL BELONGINGS BY RN AT THIS TIME.
== END 2019-04-26 17:03 | DRG 71 ==
LOC: D.ER 11:52 → D.MS 15:45
PROVIDERS: Family Medicine; ADMIT Family Medicine; ATTEND Family Medicine
DX: G93.49 Other encephalopathy (principal); N39.0 Urinary tract infection, site not specified; B37.0 Candidal stomatitis; I82.5Z9 Chronic embolism and thrombosis of unspecified deep veins of unspecified distal lower extremity; R41.0 Disorientation, unspecified; T50.995A Adverse effect of other drugs, medicaments and biological substances, initial encounter; G30.9 Alzheimer's disease, unspecified; F02.80 Dementia in other diseases classified elsewhere, unspecified severity, without behavioral disturbance, psychotic disturbance, mood disturbance, and anxiety; I10 Essential (primary) hypertension; E78.5 Hyperlipidemia, unspecified; I49.9 Cardiac arrhythmia, unspecified; Z79.01 Long term (current) use of anticoagulants

== ENCOUNTER 2019-04-26 17:02 | Inpatient (IN) | payer MEDICARE, OTHER ==
[~2019-04-26] VITALS: Ht 152.4 cm; Wt 81.6 kg
[~2019-04-26 17:02] MED LIST changes: +FLORAJEN3 CAPS460 MG PO; +HYDRALAZINE HCL25 MG PO; +LEVOFLOXACIN500 MG PO; +LIDODERM 5 %1 PATCH TRANSDERM; +MOBIC7.5 MG PO; +NYSTATIN1 PWD TOPICAL; +VITAMIN B-121000 MCG PO; +VITAMIN D5000 UNIT PO
--- NOTE | 2019-04-26 17:17 | NUR ---
ADMITTED TO ROOM 1115 FROM ACUTE UNIT. ALERT AND ORIENTED. SLIGHT REDNESS UNDER RIGHT BREAST. AND SLIGHT REDNESS UNDER ABD FOLD. FAMILY AT BS. CL IN REACH. SAFETY PRECAUTIONS GIVEN. EXPLAINED THERAPY AND FIM SCORES ETC.
[2019-04-26 17:32] VITALS: BP 161/91
[2019-04-26 18:24] LABS: BASOPHILS 0.3 % (0-2); EOSINOPHILS 2.4 % (0-7); HEMATOCRIT 40.4 % (36.0-48.0); HEMOGLOBIN 13.9 g/dL (12-16); IMMATURE GRANULOCYTES 0.4 % (0-5); LYMPHOCYTES 20.7 % (15-50); MCH 32.7 pg (26.0-34.0); MCHC 34.4 g/dL (31.0-37.0); MCV 95.1 fL (80.0-100.0); MEAN PLATELET VOLUME 9.6 fL (7.4-10.4); MONOCYTES 10.2 % (2-11); PLATELET COUNT 194 10x3/uL (130-400); RBC 4.25 10x6/uL (4.00-5.40); RDW 12.8 % (11.5-14.5); WBC 7.2 10x3/uL (4.8-10.8)
[2019-04-26 19:00] VITALS: BP 161/91
--- NOTE | 2019-04-26 19:48 | NUR ---
PT SITTING UP IN BED EATING DINNER. DAUGHTER IN ROOM. CALL LIGHT IN REACH. DENIES NEEDS OR PAIN. BED IN LOW. SIDE RAILS X2. RESP EVEN AND UNLABORED. LUNGS CLEAR. A/O X3. CONFUSED AT TIMES WITH TIME. BOWEL ACTIVE X4. PARTIAL ASSIST. WCTM
--- NOTE | 2019-04-27 02:30 | NUR ---
PT RESTING QUIETLY. CALL LIGHT IN REACH. DAUGHTER IN ROOM. BED IN LOW. SIDE RAILS X2. EYES CLOSED. RESP EVEN AND UNLABORED. BED ALARM ON. WCTM. O2 ON 2L.
--- NOTE | 2019-04-27 02:32 | NUR ---
RESTING IN BED WITH EYES CLOSED AND RESPIRAITONS UNLABORED. NO DISTRESS NOTED. CALL LIGHT IN REACH.
[2019-04-27 06:51] LABS: ANION GAP 10.3 mmol/L (8-16); CALCIUM 9.1 mg/dL (8.5-10.1); CARBON DIOXIDE 26.7 mmol/L (21.0-32.0); CREATININE - SERUM 0.9 mg/dL (0.6-1.3)
[2019-04-27 08:00] VITALS: BP 142/78
--- NOTE | 2019-04-27 08:56 | NUR ---
SITTING IN WC IN ROOM. DTR SITTING BDSIDE PT. SHE IS PLEASANT AND COOPERATIVE. IS FORGETFUL. DENIES NEEDS. CALL LIGHT IN REACH
--- NOTE | 2019-04-27 12:11 | NUR ---
SITTING UP IN WC IN ROOM EATING LUNCH. OXYGEN IN PLACE. DENIES NEEDS. CALL LIGHT IN REACH
[2019-04-27 13:34] VITALS: Ht 152.4 cm; Wt 81.6 kg
[2019-04-27 19:00] VITALS: BP 145/87
--- NOTE | 2019-04-27 19:49 | NUR ---
PATIENT RECEIVED SITTING UP IN BED TALKING WITH DAUGHTER. ASSESSMENT & VITAL SIGNS DONE. NO C/O PAIN OR DISTRESS. BED WAIVER SIGNED & PLACED IN CHART. BED LOW. CALL LIGHT WITHIN REACH. WILL CONTINUE TO MONITOR.
--- NOTE | 2019-04-28 00:09 | NUR ---
PATIENT EYES CLOSED. RESPIRATIONS 18 & EVEN. DAUGHTER AT BEDSIDE. BED LOW. CALL LIGHT WITHIN REACH. WILL CONTINUE TO MONITOR.
--- NOTE | 2019-04-28 03:06 | NUR ---
RESTING IN BED WITH EYES CLOSED AND RESPIRATIONS UNLABORED. NO DISTRESS NOTED. CALL LIGHT IN REACH.
[2019-04-28 08:00] VITALS: BP 136/88
[2019-04-28 19:30] VITALS: BP 139/72
--- NOTE | 2019-04-28 20:14 | NUR ---
GREETED PATIENT AND INTRODUCED MYSELF. PATIENTS FAMILY MEMBERS AT BEDSIDE. PATIENT DENIES ANY NEEDS AT THIS TIME. CALL LIGHT IN REACH.
--- NOTE | 2019-04-29 03:27 | NUR ---
PATIENT RESTING QUIETLY IN SUPINE POSITION. HOB AT 30 DEGREES. RESPIRATIONS EVEN. NO S/S OF DISTRESS. FAMILY MEMBER AT BEDSIDE. SR UP X 2. BED IN LOWEST POSITION. CALL LIGHT IN REACH.
[2019-04-29 07:34] LABS: ANION GAP 12.4 mmol/L (8-16); CALCIUM 9.2 mg/dL (8.5-10.1); CARBON DIOXIDE 23.3 mmol/L (21.0-32.0); CREATININE - SERUM 1.2 mg/dL (0.6-1.3); POTASSIUM - SERUM 3.7 mmol/L (3.5-5.1)
[2019-04-29 07:39] LABS: BASOPHILS 0.6 % (0-2); EOSINOPHILS 7.8 % (0-7); HEMATOCRIT 37.5 % (36.0-48.0); HEMOGLOBIN 12.6 g/dL (12-16); IMMATURE GRANULOCYTES 0.4 % (0-5); LYMPHOCYTES 22.7 % (15-50); MCH 32.1 pg (26.0-34.0); MCHC 33.6 g/dL (31.0-37.0); MCV 95.7 fL (80.0-100.0); MEAN PLATELET VOLUME 9.9 fL (7.4-10.4); MONOCYTES 16.5 % (2-11); PLATELET COUNT 228 10x3/uL (130-400); RBC 3.92 10x6/uL (4.00-5.40); RDW 13.1 % (11.5-14.5); WBC 4.7 10x3/uL (4.8-10.8)
--- NOTE | 2019-04-29 08:00 | NUR ---
PATIENT IN REHAB ROOM. WORKING WITH OCCUPATIONAL THERAPIST. BREAKFAST TRAY BROUGHT INTO REHAB ROOM. PATIENT VOICES NO NEEDS AT THIS TIME. WILL CONTINUE WITH PLAN OF CARE
[2019-04-29 08:09] VITALS: BP 101/59
--- NOTE | 2019-04-29 10:35 | NUR ---
PATIENT RESTING BACK IN BED. NYSTATIN POWDER APPLIED TO ABD FOLDS AND UNDGER BREAST.
--- NOTE | 2019-04-29 11:31 | RHP ---
PATIENT: MEGHAN GUPTA MEDICAL RECORD: [id number] ACCOUNT: [id number] LOCATION:[facility]1115 : 34 ADMISSION DATE: 04/26/19 REHABILITATION HISTORY AND PHYSICAL EXAMINATION POST ADMISSION PHYSICIAN EXAMINATION DATE OF ADMISSION: 04/26/2019 ADMITTING DIAGNOSIS: Acute encephalopathy secondary to Escherichia coli urinary tract infection. HISTORY OF PRESENT ILLNESS: The patient is an 89-year-old female patient admitted secondary to acute encephalopathy. She presented to the ER with confusion, altered mental status over several days. She was having problems finding her words. She had started on a muscle relaxant for neck pain and had increased confusion since then. She lives with her son. She is a DNR. She was placed on Rocephin for 5 days. Final urine cultures grew out ESBL negative E. coli that was sensitive to Rocephin. She was also placed on Pyridium and Levaquin. Chest x-ray showed no acute findings. CT showed no acute intracranial abnormalities. Her confusion resolved. She was continued on regular medications and had to have these adjusted secondary to elevations in her blood pressure. Other diagnosis that will require continued physician oversight including first-degree heart block. She is on Eliquis for DVT, hypertension, Alzheimer's dementia, hyperlipidemia, osteoarthritis and hypothyroidism. BARRIERS TO DISCHARGE: Self-care deficit. She does have 2 steps going into her house. She does need telemetry and be followed for weakness at this time. Her son states that she was moderately independent with ambulation and moderately independent with ADLs at home. She was referred to the physical therapy on 04/20/2019 during her acute stay. She was moderate assist with bed mobility and mod assist with walking 125 feet requiring a rest stop. The patient is mid-to-mod assist with ADLs and has problems with her shoulders and difficulty brushing her hair. She will continue to need intensive therapy to improve her functional status to assure safety in her home environment and decrease of burden of care on her family members and hopefully get her back home better than her prior level of functioning. COMORBIDITIES: Include hyperlipidemia, osteoarthritis, hypothyroidism, physical debility, candidiasis, urinary retention, neck pain, confusion, Alzheimer's dementia, and DVT. PAST MEDICAL HISTORY: Significant for thyroid problems, skin problems, arthritis. She has got a history of menopause, squamous cell skin cancer, arthritis and dementia. PAST SURGICAL HISTORY: Includes knee surgery, hernia surgery, tonsillectomy, adenoidectomy, hysterectomy, blepharoplasty, femur surgery. ALLERGIES: SOAP, PAPAIN AND BETADINE. CURRENT MEDICATIONS: Include lisinopril 40 mg daily. She is on a Lidoderm patch daily. She is on Synthroid 50 mcg daily, Levaquin 500 mg daily, Floranex 460 daily, hydrochlorothiazide 25 mg daily, vitamin D 5000 units daily, atorvastatin 10 mg daily, nystatin to apply topically, meloxicam 7.5 mg b.i.d., HISTORY AND PHYSICAL [id number] MEGHAN GUPTA hydralazine 25 mg q.i.d., Eliquis 5 mg b.i.d., Norvasc 5 mg b.i.d., and MiraLax 17 gm in 8 ounces of water daily. HABITS: No current alcohol or tobacco use. FAMILY HISTORY: Noncontributory. SOCIAL HISTORY: The patient hopes to return back home and get back to her prior level of functioning. REVIEW OF SYSTEMS: GENERAL: Does complain of weakness and fatigue. HEENT: Denies cold, cough, or congestion. CARDIOVASCULAR: Denies chest pain. PHYSICAL EXAMINATION: VITAL SIGNS: Stable, afebrile. GENERAL: An elderly female, in no acute distress upon exam. HEENT: Normocephalic and atraumatic. Mucosa moist. NECK: Supple without adenopathy. LUNGS: Clear at this time with no wheeze, rhonchi or rales. HEART: Regular rate and rhythm. No murmurs, rubs or gallops. ABDOMEN: Soft, nontender, nondistended. Positive bowel sounds times 4. EXTREMITIES: No clubbing, cyanosis or edema. NEUROLOGIC: She does have some noted delays in speech and also some proximal muscle weakness. LABORATORY DATA: Her sodium is 132, potassium 4.0, BUN and creatinine of 31 and 0.9, blood sugar is noted to be 89. Her white count is 7.2, H&H of 13 and 40, and platelet count is noted to be 194. ASSESSMENT: This is an 89-year-old female patient at the rehab with a working diagnosis of metabolic encephalopathy. The patient has potential to make improvement. We instituted the following multidisciplinary therapies to include, but not limited to physical, occupational, respiratory, speech, nutritional services, prosthetics and orthotics. Given her complex medical condition and risk from complications, rehabilitation services cannot be provided at a low level of care such a skilled nurse facility. PLAN: 1. Admit to [facility] for intensive inpatient therapy to include the following disciplines: A. Physical therapy to improve gait, all transfer skills and bed mobility to a modified independent level. B. Occupational therapy to a modified independent level. C. Case management to assist with discharge planning and placement options. D. Nutrition to assist with nutritional needs. E. Rehabilitation nursing to assist in monitoring the patient's underlying medical conditions and to assist with any type of bowel or bladder management. 2. The patient's current medication and medical care will be continued. 3. The patient will be placed on standard fall precautions. 4. The patient's estimated length of stay is approximately 7-10 days. 5. Discuss the patient during care team staff meeting this afternoon. TRANSINT:[id number] Voice Confirmation ID: [id number] DOCUMENT ID: [id number] HISTORY AND PHYSICAL [id number] MEGHAN GUPTA notes whether there has been none or any medical/functional change since admission: - No change since pre-admission screen. LUISITO attests patient continues to be appropriate for IRF: - Continues to be appropriate. CORY HEMPHILL MD at 1131 CC: [id number] DICTATION DATE: 04/27/19 0836 SOFTWARE FIRMWARE ENGINEER: 04/27/19 1022 ADM IN [facility] [address] [place] [address]
--- NOTE | 2019-04-29 15:04 | NUR ---
DAUGHTER IN ROOM WITH PATIENT. HELPING PATIENT TO BATHROOM. MIN TO MOD ASST OF ONE FROM WHEELCHAIR ONTO TOILET
--- NOTE | 2019-04-29 15:18 | NUR ---
PATIENT ADMITED TO REHAB FROM ACUTE FLOOR. DR. RICHARDSON IS HER PCP. DME AT HOME IS A CANE, WHEELCHAIR, WALKER , SHOWER CHAIR AND A BEDSIDE COMMODE. SHE LIVES WITH HER SON IN [place] AND WILL DISCHARGE THERE. WILL CONTINUE TO FOLLOW WITH PATIENT AND WILL ASSIST WITH NEEDS.
--- NOTE | 2019-04-29 17:35 | NUR ---
I have reviewed this patient and I concur with the Shift Assessment completed by the Licensed Practical Nurse today this shift.
--- NOTE | 2019-04-29 17:43 | NUR ---
MULTIPLE PEOPLE IN PATIENTS ROOM, VISITING. PATIENT SITTING UP IN WHEELCHAIR. VOICES NO NEEDS AT THIS TIME
[2019-04-29 19:00] VITALS: BP 103/73
--- NOTE | 2019-04-29 19:28 | NUR ---
PT SITTING UP IN WHEELCHAIR. CALL LIGHT IN REACH. DENIES NEEDS OR PAIN AT THIS TIME. RESP EVEN AND UNLABORED. A/O X4. WILL CONTINUE TO MONITOR.
--- NOTE | 2019-04-29 22:50 | NUR ---
PT SITTING UP IN BED. CALL LIGHT IN REACH. DAUGTHER IN ROOM. LEGS ELEVATED TO SLIGHT EDEMA TO BILATERAL ANKLES. 2+ EDEMA NOTED TO BILATERAL ANKLES. DENIES NEEDS OR PAIN AT THIS TIME. BED IN LOW. BED ALARM WAIVER ON FILE. LUNGS CLEAR. BOWEL ACTIVE X4. A/O X4. WCTM.
--- NOTE | 2019-04-30 02:37 | NUR ---
I have reviewed this patient and I concur with the Shift Assessment completed by the Licensed Practical Nurse today this shift.
--- NOTE | 2019-04-30 03:50 | NUR ---
PT RESTING QUIETLY. CALL LIGHT IN REACH. NO SIGNS OF DISTRESS OR PAIN. WCTM
[2019-04-30 08:00] VITALS: BP 136/80
--- NOTE | 2019-04-30 08:06 | NUR ---
PATIENT IS ALERT/ORIENT. DAUGHTER IN ROOM WITH PATIENT. SITTING UP IN WHEELCHAIR AT BEDSIDE TO EAT BREAKFAST. CALL LIGHT WITHIN REACH. VOICES NO NEEDS AT THIS TIME. WILL CONTINUE WITH PLAN OF CARE
--- NOTE | 2019-04-30 09:58 | NUR ---
PATIENT IN REHAB ROOM. WORKING WITH PHYSICLA THERAPIST. DENIES ANY PAIN/DISC AT THIS TIME.
--- NOTE | 2019-04-30 12:43 | NUR ---
I have reviewed this patient and I concur with the Shift Assessment completed by the Licensed Practical Nurse today this shift.
--- NOTE | 2019-04-30 13:43 | NUR ---
PATIENT IN REHAB ROOM. WORKING WITH OCCUPATIONAL THERAPIST.
--- NOTE | 2019-04-30 19:38 | NUR ---
PT SITTING UP IN WHEELCHAIR. CALL LIGHT IN REACH. LEGS ELEVATED ON BED. RESP EVEN AND UNLABORED. BED ALARM WAIVER ON CHART. DENIES NEEDS OR PAIN AT THIS TIME. WILL CONTINUE TO MONITOR. A/O X4.
[2019-04-30 20:53] VITALS: BP 175/90
--- NOTE | 2019-04-30 22:18 | NUR ---
PATIENT SLEEPING AT THIS TIME. WILL CONTINUE TO MONITOR.
--- NOTE | 2019-05-01 02:06 | NUR ---
RESTING IN BED WITH EYES CLOSED.
--- NOTE | 2019-05-01 04:50 | NUR ---
PT ASSISTED TO THE BATHROOM WITH MIN ASSIST. NO FURTHER NEEDS VOICED.
--- NOTE | 2019-05-01 07:58 | NUR ---
PATIENT IS ALERT/ORIENT. SITTING ON THE SIDE OF THE BED TO EAT BREAKFAST. CALL LIGHT WITHIN REACH. VOICES NO NEEDS. WILL CONTINUE WITH PLAN OF CARE
[2019-05-01 08:00] VITALS: BP 136/57
--- NOTE | 2019-05-01 09:40 | NUR ---
PATIENTS DAUGHTER TOOK PATIENT HOME ON A THERAPUTIC PASS
--- NOTE | 2019-05-01 13:39 | NUR ---
PATIENT RETURNED TO UNIT AFTER THERAPUTIC VISIT
--- NOTE | 2019-05-01 14:33 | NUR ---
PATIENT RESTING IN RECLINER IN ROOM. DAUGHTER REMAINS IN ROOM. CALL LIGHT WITHIN REACH
--- NOTE | 2019-05-01 17:52 | NUR ---
I have reviewed this patient and I concur with the Shift Assessment completed by the Licensed Practical Nurse today this shift.
--- NOTE | 2019-05-01 19:35 | NUR ---
GREETED PATIENT AND INTRODUCED MYSELF. PATIENT IS SITTING IN WHEELCHAIR WITH FAMILY MEMBERS PRESENT. DENIES ANY NEEDS AT THIS TIME. CALL LIGHT IN REACH. VITAL SIGNS OBTAINED.
[2019-05-01 21:40] VITALS: BP 122/62
--- NOTE | 2019-05-02 00:58 | NUR ---
ASSISTED PATIENT TO BATHROOM USING WALKER. BACK TO BED AND REPOSITIONED FOR COMFORT. CALL LIGHT IN REACH.
[2019-05-02 06:44] LABS: BASOPHILS 0.8 % (0-2); EOSINOPHILS 5.3 % (0-7); HEMATOCRIT 38.1 % (36.0-48.0); IMMATURE GRANULOCYTES 0.5 % (0-5); LYMPHOCYTES 27.7 % (15-50); MCH 32.6 pg (26.0-34.0); MCHC 34.1 g/dL (31.0-37.0); MCV 95.5 fL (80.0-100.0); MEAN PLATELET VOLUME 9.8 fL (7.4-10.4); MONOCYTES 14.6 % (2-11); NEUTROPHILS 51.1 % (40-80); PLATELET COUNT 213 10x3/uL (130-400); RBC 3.99 10x6/uL (4.00-5.40)
[2019-05-02 07:05] LABS: ANION GAP 11.7 mmol/L (8-16); CALCIUM 9.5 mg/dL (8.5-10.1); CARBON DIOXIDE 25.9 mmol/L (21.0-32.0); POTASSIUM - SERUM 3.6 mmol/L (3.5-5.1)
--- NOTE | 2019-05-02 07:34 | NUR ---
ALERT AND ORIENTED. NO DISTRESS NOTED. CL IN REACH.
[2019-05-02 08:00] VITALS: BP 135/71
--- NOTE | 2019-05-02 12:08 | NUR ---
PARTICIPATING IN THERAPY AT THIS TIME. NO C/O PAIN.
[2019-05-02 12:43] VITALS: BP 101/72
[2019-05-02 16:05] VITALS: BP 115/69
--- NOTE | 2019-05-02 16:52 | NUR ---
NO CHANGE IN ASSESSMENT. RESTING IN BED AFTER THERAPY. CL IN REACH.
[2019-05-02 19:00] VITALS: BP 157/84
--- NOTE | 2019-05-02 20:45 | NUR ---
PT IS RESTING IN BED WATCHING TV. ALERT AND ORIENTED X 3. DENIES ANY NEEDS AT THIS TIME. NO COMPLAINT VOICED. SR'S ARE UP X 2 IN BED. CALL LIGHT AND BEDSIDE TABLE ARE WITHIN EASY REACH.
--- NOTE | 2019-05-02 22:25 | NUR ---
PT IS RESTING QUIETLY IN BED WITH EYES CLOSED. RESPS ARE EVEN AND UNLABORED. NO ACUTE DISTRESS NOTED.
--- NOTE | 2019-05-02 23:47 | NUR ---
PT IN BED, LOWEST POSITION, EYES CLOSED, AROUSES EASILY TO VOICE, NO IMMEDIATE NEEDS NOTED, FLUIDS AND CALL LIGHT WITHIN REACH
--- NOTE | 2019-05-03 07:56 | NUR ---
PATIENT IS ALERT/OREINT. SITTING UP IN BED TO EAT BREAKFAST. CALL LIGHT WITHIN REACH. VOICES NO NEEDS. WILL CONTINUE WITH PLAN OF CARE
[2019-05-03 08:00] VITALS: BP 139/53
--- NOTE | 2019-05-03 09:33 | NUR ---
SITTING IN WC LOOKING AT [employer]. NO C/O PAIN. CL IN REACH.
--- NOTE | 2019-05-03 10:01 | NUR ---
PATIENT IN REHAB ROOM. WORKING WITH PHYSICAL THERAPIST. DENIES ANY PAIN/DISC AT THIS TIME.
--- NOTE | 2019-05-03 10:13 | NUR ---
Nutrition follow up Regular diet with 75-100% intake of meals BM yesterday Pt is therapy now Pt continues to be screened at low nutritional risk RD following
--- NOTE | 2019-05-03 13:12 | NUR ---
PATIENT SITTING UP IN WHEELCHAIR BY BED. CALL LIGHT WITHIN REACH. VOICES NO NEEDS
--- NOTE | 2019-05-03 13:21 | NUR ---
I have reviewed this patient and I concur with the Shift Assessment completed by the Licensed Practical Nurse today this shift.
[2019-05-03 20:00] VITALS: BP 134/69
--- NOTE | 2019-05-03 22:51 | NUR ---
PATIENT RECEIVED SITTING UP IN BED WATCHING TV. PATIENT VITAL SIGNS & ASSESSMENT DONE. NO C/O PAIN OR DISTRESS. BED LOW. CALL LIGHT WITHIN REACH. WILL CONTINUE TO MONITOR.
--- NOTE | 2019-05-04 03:41 | NUR ---
PATIENT EYES CLOSED. RESPIRATIONS 18 & EVEN. BED LOW. CALL LIGHT WITHIN REACH. WILL CONTINUE TO MONITOR.
--- NOTE | 2019-05-04 07:09 | NUR ---
RESP EVEN AND UNLABAORED. ALERT AND ORIENTED. NO C/O PAIN.
[2019-05-04 07:19] LABS: BASOPHILS 0.6 % (0-2); EOSINOPHILS 4.3 % (0-7); HEMATOCRIT 38.5 % (36.0-48.0); IMMATURE GRANULOCYTES 0.6 % (0-5); MCH 32.7 pg (26.0-34.0); MCHC 33.8 g/dL (31.0-37.0); MEAN PLATELET VOLUME 10.5 fL (7.4-10.4); MONOCYTES 13.9 % (2-11); NEUTROPHILS 47.6 % (40-80); PLATELET COUNT 177 10x3/uL (130-400); RBC 3.97 10x6/uL (4.00-5.40); RDW 13.3 % (11.5-14.5); WBC 3.5 10x3/uL (4.8-10.8)
[2019-05-04 07:34] LABS: ANION GAP 14.7 mmol/L (8-16); CALCIUM 9.5 mg/dL (8.5-10.1); CARBON DIOXIDE 23.4 mmol/L (21.0-32.0); CREATININE - SERUM 1.1 mg/dL (0.6-1.3); POTASSIUM - SERUM 4.1 mmol/L (3.5-5.1)
[2019-05-04 08:10] VITALS: BP 126/76
[2019-05-04 12:04] VITALS: BP 110/59
--- NOTE | 2019-05-04 13:27 | NUR ---
SITTING IN WC. NO C/O PAIN. FAMILY HERE.
--- NOTE | 2019-05-04 15:22 | NUR ---
CARE TEAM MEETING: PATIENT AND FAMILY AND PHONE CONFERENCE WITH DAUGHTER GARTH ATTENDED MEETING. TENTIVE DISCHARGE DATE IS 05/09/19. QUESTIONS AND CONCERNS WERE ADDRESSED. WILL CONTINUE TO FOLLOW WITH PATIENT
[2019-05-04 15:59] VITALS: BP 104/42
--- NOTE | 2019-05-04 17:04 | NUR ---
NO CHANGE IN ASSESSMENT. SITTING IN CHAIR. NO C/O PAIN. CL IN REACH.
[2019-05-04 19:00] VITALS: BP 105/79
--- NOTE | 2019-05-04 20:05 | NUR ---
GREETED PATIENT AND INTRODUCED MYSELF HER NURSE FOR THE EVENING. PATIENT IS LAYING IN BED AND DENIES ANY NEEDS AT THIS TIME. CALL LIGHT IN REACH.
--- NOTE | 2019-05-04 21:30 | NUR ---
ASSISTED PATIENT TO BATHROOM USING WALKER. PATIENT BACK TO BED AND REPOSITIONED FOR COMFORT. CALL LIGHT IN REACH.
[2019-05-05 08:00] VITALS: BP 129/67
--- NOTE | 2019-05-05 08:07 | NUR ---
PT RESTING IN BED WITH EYES OPEN CALL LIGHT IN REACH NO PROBLEMS WILL MONITER
--- NOTE | 2019-05-05 17:00 | NUR ---
EATING SUPPER.CL IN REACH.
--- NOTE | 2019-05-05 18:54 | NUR ---
PT RESTING IN BED WITH EYES OPEN CALL LIGHT IN REACH NO PROBLEMS WILL MONITER
--- NOTE | 2019-05-05 22:06 | NUR ---
PT UP TO TOILET HAD BM, CHANGED BRIEF, BACK TO BED, BED LOWEST POSITION,BREATH EVEN AND UNLABORED, FLUIDS AND CALL LIGHT WITHIN REACH, NO NEEDS NOTED
[2019-05-06 01:11] VITALS: BP 144/86
--- NOTE | 2019-05-06 03:16 | NUR ---
PT IN BED LOWEST POSITION, EYES CLOSED AROUSES EASILY TO VOICE, BREATHS EVEN AND UNLABORED, NO NEEDS NOTED, FLUIDS AND CALL LIGHT WITHIN REACH
[2019-05-06 07:25] LABS: BASOPHILS 0.5 % (0-2); EOSINOPHILS 4.2 % (0-7); IMMATURE GRANULOCYTES 0.2 % (0-5); LYMPHOCYTES 27.8 % (15-50); MCH 32.4 pg (26.0-34.0); MCHC 34.2 g/dL (31.0-37.0); MCV 94.8 fL (80.0-100.0); MEAN PLATELET VOLUME 10.1 fL (7.4-10.4); MONOCYTES 11.1 % (2-11); NEUTROPHILS 56.2 % (40-80); RBC 4.01 10x6/uL (4.00-5.40); WBC 4.3 10x3/uL (4.8-10.8)
[2019-05-06 07:34] LABS: PLATELET COUNT 256 10x3/uL (130-400)
[2019-05-06 07:45] LABS: ANION GAP 13.5 mmol/L (8-16); CALCIUM 9.6 mg/dL (8.5-10.1); CARBON DIOXIDE 23.5 mmol/L (21.0-32.0)
[2019-05-06 07:55] VITALS: BP 129/82
--- NOTE | 2019-05-06 13:29 | NUR ---
SITTING UP IN BED TALKING WITH VISITORS. NO S/S DISTRESS. CALL LIGHT IN REACH
--- NOTE | 2019-05-06 19:35 | NUR ---
PT SITTING UP IN WHEELCHAIR. CALL LIGHT IN REACH. DENIES NEEDS OR PAIN AT THIS TIME. LUNGS CLEAR. BOWEL ACTIVE X4. A/O X4. ASSESSMENT COMPLETED AT THIS TIME. RESP EVEN AND UNLABORED. WILL CONTINUE TO MONITOR.
[2019-05-06 20:43] VITALS: BP 110/67
--- NOTE | 2019-05-06 22:30 | NUR ---
PM MEDS GIVEN. VITALS WNL. DENIES FURTHER NEEDS. CL IN REACH. LIGHTS OUT. WCTM
--- NOTE | 2019-05-07 02:37 | NUR ---
RESTING IN BED WITH EYES CLOSED AND RESPIRATIONS UNLABORED. NO DISTRESS NOTED. CALL LIGHT IN REACH.
--- NOTE | 2019-05-07 04:36 | NUR ---
PT RESTING QUIETLY. CALL LIGHT IN REACH. NO DISTRESS NOTED. WCTM
--- NOTE | 2019-05-07 08:00 | NUR ---
PATIENT IS ALERT/ORIENT. CALL LIGHT WITHIN REACH. VOICES NO NEEDS AT THIS TIME. WILL CONTINUE WITH PLAN OF CARE
[2019-05-07 08:08] VITALS: BP 139/67
--- NOTE | 2019-05-07 10:17 | NUR ---
PATIENT UP IN CHAIR BY SINK. BRUSHING TEETH.
--- NOTE | 2019-05-07 19:35 | NUR ---
PT UP IN WHEELCHAIR ROLLING AROUND IN ROOM. DENIES NEEDS OR PAIN AT THIS TIME. CALL LIGHT IN REACH. RESP EVEN AND UNLABORED. BED ALARM WAIVER ON CHART. WILL CONTINUE TO MONITOR. A/O X4.
[2019-05-07 20:21] VITALS: BP 112/61
--- NOTE | 2019-05-07 22:00 | NUR ---
PT SITTING UP IN WHEELCHAIR WATCHING TV. CALL LIGHT IN REACH. ASSESSMENT COMPLETED. DENIES NEEDS OR PAIN AT THIS TIME. NO DISTRESS NOTED. PM MEDS GIVEN VITALS WNL. WCTM.
--- NOTE | 2019-05-08 05:36 | NUR ---
RESTING IN BED WITH RESPIRATIONS UNLABORED. NO DISTRESS NOTED. CALLL LIGHT IN REACH.
--- NOTE | 2019-05-08 06:00 | NUR ---
ASSISTED PT WITH SHOWER THIS AM. PT IN WHEELCHAIR. DENIES NEEDS AT THIS TIME. CL IN REACH.
[2019-05-08 08:31] VITALS: BP 109/67
--- NOTE | 2019-05-08 11:34 | NUR ---
THE PATIENT WAS LYING IN BED WHEN STAFF ENTERED HER ROOM. BED IS IN THE LOW POSITION WITH SIDERAILS X2 AND CALL LIGHT WITHIN REACH. THE PATIENT DEMOSNTATES APPROPRIATE USE OF A CALL LIGHT. THE PATIENT APPEARS COMFORTABLE WITH NO QUESTIONS OR CONCERNS AT THIS TIME.
[2019-05-08 18:44] VITALS: BP 121/62
--- NOTE | 2019-05-08 20:01 | NUR ---
REST IN BED AND WATCH TV. CALL LIGHT IN REACH.
--- NOTE | 2019-05-08 22:04 | NUR ---
PATIENT RESTING QUIETLY AT THIS TIME. WILL CONTINUE TO MONITOR.
--- NOTE | 2019-05-09 02:19 | NUR ---
ASSISTED PT TO BATHROOM.
--- NOTE | 2019-05-09 04:42 | NUR ---
REST IN BED, CALL LIGHT IN REACH.
[2019-05-09 07:38] LABS: ANION GAP 13.1 mmol/L (8-16); CALCIUM 9.2 mg/dL (8.5-10.1); CARBON DIOXIDE 25.2 mmol/L (21.0-32.0); CREATININE - SERUM 0.9 mg/dL (0.6-1.3); POTASSIUM - SERUM 4.3 mmol/L (3.5-5.1)
[2019-05-09 07:57] LABS: BASOPHILS 0.9 % (0-2); EOSINOPHILS 5.2 % (0-7); HEMATOCRIT 36.5 % (36.0-48.0); HEMOGLOBIN 12.4 g/dL (12-16); IMMATURE GRANULOCYTES 0.5 % (0-5); LYMPHOCYTES 25.3 % (15-50); MCH 32.5 pg (26.0-34.0); MCV 95.5 fL (80.0-100.0); MEAN PLATELET VOLUME 10.2 fL (7.4-10.4); MONOCYTES 13.3 % (2-11); NEUTROPHILS 54.8 % (40-80); PLATELET COUNT 233 10x3/uL (130-400); RBC 3.82 10x6/uL (4.00-5.40); RDW 13.2 % (11.5-14.5); WBC 4.3 10x3/uL (4.8-10.8)
[2019-05-09 08:00] VITALS: BP 131/55
--- NOTE | 2019-05-09 09:05 | NUR ---
ADMININSTERED MORNING MEDS WHOLE WITHOUT DIFFICULTY. DENIES ANY PAIN OR NEEDS. IN THERAPY GYM PARTICIPATING IN PT WITH STAN. NO SIGNS OF DISTRESS NOTED. WILL CONTINUE TO MONITOR
--- NOTE | 2019-05-09 09:45 | NUR ---
PATIENT DISCHARGING HOME WITH FAMILY TODAY. [facility] WILL PROVIDE THERAPY AT HOME.NO NEW DME NEEDED AT THIS TIME. DR. RICHARDSON 05/18/19 @ 3:30. PATIENT CHOICE FORM AND IMFM FORMS SIGNED, COPY GIVEN TO PATIENT AND FILED IN CHART. DISCHARGE INSTRUCTIONS WITH FIM DATA FAXED TO PCP, HOME HEALTH AND REVIEWED WITH PATIENT AND FAMILY
--- NOTE | 2019-05-09 11:30 | NUR ---
PT BEING DISCHARGED HOME IN STABLE CONDITION. REVEIWED DISCHARGE INSTRUCTIONS AND MEDICATIONS. NO CONCERNS VOICED. PT REQUESTED MEDICATIONS NOT TO BE CALLED IN TO PHARMACY. WILL TRANSPORT PT OUT VIA W/C WHEN FAMILY ARRIVES
--- NOTE | 2019-05-09 14:09 | NUR ---
SITTING UP IN W/C GATHERING BELONGINGS. DENIES ANY NEEDS OR PAIN. NO SIGNS OF DISTRESS NOTED. CALL LIGHT WITHIN REACH, FALL PRECAUTIONS IN PLACE. WILL CONTINUE TO MONITOR
--- NOTE | 2019-05-09 14:18 | NUR ---
TRANSPORTED OUT FRONT VIA W/C BY HOSPITAL STAFF. DISCHARGED HOME IN STABLE CONDITION WITH FAMILY.
== END 2019-05-09 14:20 | disposition home health service (06) | DRG 71 ==
LOC: D.REHAB 17:02
PROVIDERS: ADMIT Emergency Medicine; ATTEND Emergency Medicine
DX: G93.41 Metabolic encephalopathy (principal); N39.0 Urinary tract infection, site not specified; I82.409 Acute embolism and thrombosis of unspecified deep veins of unspecified lower extremity; B96.20 Unspecified Escherichia coli [E. coli] as the cause of diseases classified elsewhere; E78.5 Hyperlipidemia, unspecified; M19.90 Unspecified osteoarthritis, unspecified site; E03.9 Hypothyroidism, unspecified; R53.81 Other malaise; R33.9 Retention of urine, unspecified; G30.9 Alzheimer's disease, unspecified; F02.80 Dementia in other diseases classified elsewhere, unspecified severity, without behavioral disturbance, psychotic disturbance, mood disturbance, and anxiety; M54.2 Cervicalgia; I44.0 Atrioventricular block, first degree; J30.9 Allergic rhinitis, unspecified

== ENCOUNTER → 2019-05-26 19:08 | Outpatient (CLI) | payer MEDICARE, OTHER ==
[2019-04-27 13:34] VITALS: BMI 35.1
[2019-05-26 19:25] LABS: APPEARANCE CLEAR (CLEAR); BILIRUBIN NEGATIVE (NEGATIVE); COLOR STRAW (YELLOW); GLUCOSE NEGATIVE (NEGATIVE); KETONE NEGATIVE (NEGATIVE); NITRITE NEGATIVE (NEGATIVE); PROTEIN NEGATIVE (NEGATIVE); SPECIFIC GRAVITY 1.005 (1.005-1.020); UROBILINOGEN NORMAL (NORMAL)
== END | disposition home or self-care (01) ==
LOC: D.LABREF 19:08
PROVIDERS: ATTEND Family Medicine
DX: N39.0 Urinary tract infection, site not specified (principal)